=== PATIENT | male | born 1960 | race Caucasian/White ===

== ENCOUNTER 2016-12-11 09:18 | Inpatient (IN) ==
--- NOTE | 2016-12-10 21:03 | Discharge Summary ---
<PatricealtheaYari yap Abdoul - Last Filed: 12/10/16 21:01> Date of Encounter: 12/10/16 - Discharge Diagnosis (1) Left rotator cuff tear arthropathy Priority: Primary Status: Acute (2) HTN (hypertension) Priority: Secondary Status: Chronic Qualifiers: Hypertension type: essential hypertension Qualified Code(s): I10 - Essential (primary) hypertension (3) COPD (chronic obstructive pulmonary disease) Priority: Secondary Status: Chronic Qualifiers: COPD type: unspecified COPD Qualified Code(s): J44.9 - Chronic obstructive pulmonary disease, unspecified (4) Tobacco use Priority: Secondary Status: Chronic - Discharge Medications Home Medications: Ipratropium [ATROVENT Inhaler] 2 puff IH Q6HR 07/06/15 [History] Metoprolol [Lopressor] 25 mg PO BID 07/06/15 [History] OxyCODONE Immed Rel [Roxicodone 5 MG] 5 - 10 mg PO Q6HR PRN #40 tablet 12/10/16 [Rx] Albuterol Sulfate [Albuterol Inhaler] 2 puff IH Q4H PRN 12/11/16 [History] Fenofibric Acid (Choline) [Trilipix] 135 mg PO DAILY 12/11/16 [History] Fluticasone/Salmeterol [Advair 250-50 Diskus] 1 each IH BID 12/11/16 [History] Lisinopril/Hydrochlorothiazide [Zestoretic 20-12.5 mg Tablet] 1 each PO DAILY [History] Multivitamin [Multi-Day Vitamins] 1 each PO BID 12/11/16 [History] Allergies/Adverse Reactions: Allergies [place] Allergy (Verified 07/06/15 20:01) [place] Primary care physician: Robbi Whitman - Patient Status Disposition: Home, Self-Care Condition: Good - Discharge Instructions Follow Up With: Robbi Martinez, [facility] [Primary Care Provider] - - Hospital Course Hospital course: Mr. Carballo is a 56 year old male - Time Spent with Patient Total time spent providing and/or coordinating discharge services: <Nathan Hayden - Last Filed: 12/11/16 14:27> Date of Encounter: 12/11/16 Time of Encounter: 14:26 - Discharge Diagnosis (1) Left rotator cuff tear arthropathy Priority: Primary Status: Acute (2) COPD (chronic obstructive pulmonary disease) Priority: Secondary Status: Chronic Qualifiers: COPD type: unspecified COPD Qualified Code(s): J44.9 - Chronic obstructive pulmonary disease, unspecified (3) HTN (hypertension) Priority: Secondary Status: Chronic Qualifiers: Hypertension type: essential hypertension Qualified Code(s): I10 - Essential (primary) hypertension (4) Tobacco use Priority: Secondary Status: Chronic Primary care physician: Robbi Whitman - Patient Status Functional capacity at discharge: independent ambulation Overall status at discharge: patient is progressing back to baseline - Hospital Course Hospital course: Mr. Carballo is a 56 year old male The patient had an uneventful postoperative course. They received antibiotics and physical therapy and were discharged in stable condition. There will follow -up in the office in 2 weeks. - Time Spent with Patient Total time spent providing and/or coordinating discharge services:
--- NOTE | 2016-12-11 09:45 | History & Physical Report ---
Date of Encounter: 12/11/16 Time of Encounter: 09:45 24 Hour HP Update - Instructions Instructions: If the History and Physical is less than 30 days old and was completed prior to A.M. admission and or procedure and has NOT been updated on calendar day of procedure please complete this update prior to performing procedure. - Update Patient reports changes in Medical Condition: No Changes in assessment/condition: No Changes in Medication: No Preop tests/diagnostics Reviewed: Yes Surgery Remains Indicated: Yes Consent for Planned Operative Procedure(s) Verified: Yes - Pre-Operative Checklist Preoperative Checklist Indicated: No Prophylactic Antibiotic Ordered: Yes Is VTE Prophylaxis Indicated?: Yes
[2016-12-11] MEDS ORDERED: Albuterol 2.5 MG/3 ML NEBULIZER IH ONE (09:48)
[2016-12-11] MEDS ORDERED: CeFAZolin Pre 2,000 MG/100 ML 2,000 MG/100 ML BAG IVPB ONE (09:48)
[2016-12-11] MEDS ORDERED: Ringers Solution, Lactated 1,000 ML IVC SCH ×2 (10:00→13:44)
[2016-12-11] MEDS ORDERED: Famotidine 20 MG/2 ML VIAL IVP ONE (10:37)
--- NOTE | 2016-12-11 10:40 | Anesthesia Evaluation PreOp ---
Date of Encounter: 12/11/16 Time of Encounter: 10:40 - Past History Planned Operation: Left Total Shoulder Replacement Cardiac History: HTN, Hyperlipidemia Pulmonary History: Smoker, COPD [employer] History: Denies Any Significant HX Other Medical History: Denies Any Significant HX Anesthesia History: No Prior Anesthetic Complications Alcohol Use: none, occasionally Drug use: none Medications and Allergies Ipratropium [ATROVENT Inhaler] 2 puff IH Q6HR 07/06/15 [History] Metoprolol [Lopressor] 25 mg PO BID 07/06/15 [History] OxyCODONE Immed Rel [Roxicodone 5 MG] 5 - 10 mg PO Q6HR PRN #40 tablet 12/10/16 [Rx] Albuterol Sulfate [Albuterol Inhaler] 2 puff IH Q4H PRN 12/11/16 [History] Fenofibric Acid (Choline) [Trilipix] 135 mg PO DAILY 12/11/16 [History] Fluticasone/Salmeterol [Advair 250-50 Diskus] 1 each IH BID 12/11/16 [History] Lisinopril/Hydrochlorothiazide [Zestoretic 20-12.5 mg Tablet] 1 each PO DAILY [History] Multivitamin [Multi-Day Vitamins] 1 each PO BID 12/11/16 [History] Allergies [place] Allergy (Verified 07/06/15 20:01) [place] - Meds/Allergy Pre-op Review Medications Reviewed: Yes Allergies Reviewed: Yes Beta Blockers on Current Med List: Yes (Took Metoprolol last night 1999) Anesthesia Results - Labs Laboratory Tests 11/27/16 11/27/16 12:35 12:35 Hgb 18.7 H Hct 56.6 H Plt Count 264 Sodium 140 Potassium 4.5 BUN 12 Creatinine 1.04 - Imaging EKG: report reviewed (SR) Anesthesia Exam O2 Sat Height 1.71 m Height 1.71 m Height 1.71 m Weight 91.172 kg Weight 91.172 kg Weight 91.172 kg O2 Sat by Pulse Oximetry 95 O2 Sat by Pulse Oximetry 95 O2 Sat by Pulse Oximetry 95 Vital Signs Temp Pulse Resp BP Pulse Ox 98.8 F 91 18 123/89 95 12/11/16 09:46 12/11/16 09:46 12/11/16 09:46 12/11/16 09:46 12/11/16 09:46 Height: 5'8 Weight: 200 lbs NPO (# of Hours): MN Pain Scale: 0 - HEENT Pupil (Motor): Pupils equal, EOMI Mallampati: II Teeth: Normal Oral Opening: Greater than 3 - [employer] LOC: Oriented [employer] Motor: Normal RUE, Normal LUE, Normal RLE, Normal LLE, Normal Face [employer] Sensory: Normal: RUE, LUE, RLE, LLE, Face - Cardiac Rhythm: Regular Murmur: None JVD: No Carotid Bruit: No - Pulmonary Breath Sounds: bilateral Clear Respiratory Effort: Symmetrical Anesthesia Assess/Plan ASA Score: 3 (HTN COPD) Modified [place] Scale for Level of Consciousness: Cooperative, oriented, and tranquil Anesthetic Plan: General, Regional Monitoring Plan: Standard Monitors Recovery Plan: PACU (Discussed GA and RA, agrees to proceed)
[2016-12-11] MEDS ORDERED: Lidocaine -MPF 2% 2 ML VIAL ONE ×2 (10:48→11:10)
[2016-12-11] MEDS ORDERED: *HR* FentaNYL (PF) 100 MCG/2 ML VIAL ONE ×2 (10:48→12:01)
[2016-12-11] MEDS ORDERED: *HR* Propofol 200 MG/20 ML VIAL IVP ONE (10:48)
[2016-12-11] MEDS ORDERED: *HR* Midazolam HCl 2 MG/2 ML VIAL ONE (10:48)
[2016-12-11] MEDS ORDERED: *HR* Succinylcholine 200 MG/10 ML VIAL IVP ONE (11:10)
[2016-12-11 11:21] LABS: Prothrombin Time 11.3 Seconds (9.4-12.1)
[2016-12-11 11:23] LABS: Activated Partial Thrombo Time 30.1 Seconds (26.0-36.0)
[2016-12-11] MEDS ORDERED: Tetracaine/PF 20 MG/2 ML AMPUL SPINA ONE (11:29)
[2016-12-11] MEDS ORDERED: Dexamethasone 4 MG/ML VIAL ONE (12:14)
[2016-12-11] MEDS ORDERED: Ondansetron 4 MG/2 ML VIAL ONE (12:14)
--- NOTE | 2016-12-11 12:14 | Anesthesia Procedures ---
Date of Encounter: 12/11/16 Time of Encounter: 11:00 Procedures: Anesthesia - Nerve Block Procedure Date: 12/11/16 Time: 11:50 Pre-op Diagnosis: Left Shoulder O Surgical Procedure: Arthropathy Checklist: Correct Patient Identifier Correct side: Left Blood Thinner: No Monitor Applied: EKG, BP, Pulse Oximetry Supplemental Oxygen via Nasal Cannula (L/min): 2 Sedation: Versed (mg): 2 Sedation: Fentanyl (mcg): 100 Indication: Post Op Analgesia Pre-op Neuro Deficits: No Block Type: Supraclavicular Catheter placed: No Depth at skin (cm): 3 Sterile Technique: Yes Ultrasound used: Yes Anatomy identified: Yes Visual spread of Local: Yes Neuro Stimulation: No Blood on Needle Aspiration: No Smooth Injection of Local: Yes Pain with Injection of Local: No Prep: Chlorhexadine Needle: 22 x 50 mm Stimuplex Local: Tetracaine (20), Other (Bupivacaine 0.5%) Volume (cc): 30 Number of Attempts: 1 Complications: None/effective block Vitals: Vital Signs/O2 Sat/Glucose, Most Current Temp Pulse Resp BP Pulse Ox 12/11/16 11:49 88 16 131/91 94 L 12/11/16 11:31 91 16 119/81 97 12/11/16 10:00 98.8 F 91 18 123/89 95 12/11/16 09:46 98.8 F 91 18 123/89 95
[2016-12-11] MEDS ORDERED: *HR* HYDROmorphone (PF) 1 MG/ML SYRINGE IVP PRN ×2 (12:24→13:44)
[2016-12-11] MEDS ORDERED: *HR* Promethazine 25 MG/ML VIAL IVP PRN (12:24)
[2016-12-11] MEDS ORDERED: *HR* Labetalol 100 MG/20 ML MDV IVP PRN (12:24)
--- NOTE | 2016-12-11 12:47 | Orthopedic Operative Note ---
Date of procedure: 12/11/16 Pre-op diagnosis: Shoulder cuff tear arthropathy left Post-op diagnosis: same Procedure: Procedure: Left Total Shoulder Replacment Reverse, Estimated blood loss: 100 cc Hardware:Arthrex large glenoid baseplate, 2 4.5 screws. 1 6.5 screw, 42 lateral glenosphere, 7 humeral stem, poly insert 3 and 6 metal Exam Under anesthesia: Full motion and no instability Procedural Notes: Grade 3 arthritic changes humeral head glenoid socket irreparable tear subscap supraspinatus infraspinatus. Operative procedure: The patient was brought to the operating room and placed on the operating room table. After general anesthesia was administered the operative shoulder was examined. Findings were noted. The patient was placed in the modified beachchair position. All pressure points were padded appropriately. And the head was stabilized in the neutral position. The operative extremity was prepped and draped in the sterile surgical fashion. The patient received IV antibiotics prior to skin incision. A standard deltopectoral approach was made to the operative shoulder. Incision was made to the skin and subcutaneous tissue,hemo stasis was obtained with Bovie cautery. Using careful blunt dissection the cephalic vein was identified and mobilized medially. The deltopectoral interval was developed and the clavipectoral fascia was incised. Patient noted to have an irreparable tear of the subscapularis. The humerus was dislocated patient noted to have irreparable tear supraspinatus tendon and infraspinatus and grade 3 arthritic changes humeral head glenoid socket, and the humeral cut was made along the anatomic neck. Anterior and posterior Bankart retractors were placed to expose the glenoid. The glenoid guide was seated and the centering hole was made. It was reamed with the appropriate medium reamer. The medium baseplate was seated and secured with (2) 4.5 screws and one 6.5 screw. The baseplate was irrigated and dried and the lateral Glenosphere was seated and secured with the Mauricio taper. The Mauricio taper was tested and found to be secure the humerus was redislocated and prepared with the diaphyseal reamers, followed by a broaching process up to the appropriate size 7 in the patient's anatomic version. The metaphyseal reamer was then utilized. Trial reduction found the shoulder to be relocatable. Trial components were removed and drill holes were placed in the lesser tuberosity. They were filled with #5 FiberWire suture incorporating the biceps tendon. These sutures were used for a subscap repair and a biceps tenodesis. The appropriate 7 stem was impacted in place in the patient's anatomic version. Trial reduction found the shoulder to be relocatable and stable with the appropriate 6 metal and 3 Susana Trial component was removed and the real 6 metal and 3 Susana was seated and secured the shoulder was reduced. The shoulder had excellent motion and excellent stability and no evidence of dislocation. The deep tissue was irrigated with pulse irrigation. The deltopectoral interval was closed with a running #1 PDS suture, subcutaneous tissue was irrigated and closed with 0 PDS suture, the skin was closed with Dermabond. The patient was placed in a sterile dressing, abduction brace and extubated. The patient was then transferred to the recovery room in stable condition. Anesthesia: KENIA Surgeon: Nathan Hayden Condition: stable Disposition: PACU
[2016-12-11 13:38] LABS: Hematocrit 47.5 % (37.5-50.1); Hemoglobin 15.9 g/dL (12.9-16.9)
[2016-12-11] MEDS ORDERED: Sennosides 8.6 MG TABLET PO PRN (13:44)
[2016-12-11] MEDS ORDERED: *HR* OxyCODONE Immed Rel 5 MG TABLET PO PRN ×2 (13:44)
[2016-12-11] MEDS ORDERED: Ondansetron 4 MG/2 ML VIAL IVP PRN (13:44)
[2016-12-11] MEDS ORDERED: Acetaminophen 325 MG TABLET PO PRN (13:44)
[2016-12-11] MEDS ORDERED: Naloxone 0.4 MG/ML INJ IVP PRN (13:44)
[2016-12-11] MEDS ORDERED: Albuterol Neb 1.25 MG/3 ML VIAL IH ONE (13:44)
[2016-12-11] MEDS ORDERED: MOM Conc 10 ML UD.LIQ PO PRN (13:44)
[2016-12-11] MEDS ORDERED: Temazepam 15 MG CAPSULE PO PRN (13:44)
--- NOTE | 2016-12-11 13:49 | Anesthesia Evaluation Post Op ---
Date of Encounter: 12/11/16 Time of Encounter: 13:48 - Vital Signs Vital Signs: Vital Signs/O2 Sat, Most Current Temp Pulse Resp BP Pulse Ox 97.3 F L 80 16 120/84 98 12/11/16 13:45 12/11/16 13:45 12/11/16 13:45 12/11/16 13:45 12/11/16 13:45 - Lungs Lungs: Clear Ascult./Percussion - Airway Airway: Non-obstructed - Cardiovascular Regular Rate - Mental Status Mental Status: Alert & Oriented, Answers Appropriately - Pain Pain Scale: 0 Pain Scale used: Numeric (1 - 10) - Nausea Vomiting Nausea Vomiting: Not Present - Hydration Hydration: NPO, Has not voided - Discharge PostOp Status: Transfer Patient to floor
[2016-12-11] MEDS ORDERED: *HR* Enoxaparin 30 MG/0.3 ML SYRINGE SQ ONE (14:16)
[2016-12-11] MEDS: Ipratropium 1 PUFF INHALER IH SCH ×2 (15:45)
[2016-12-11] MEDS ORDERED: ceFAZolin 2,000 MG in D5% in Water 100 ML IVPB ONE (17:00)
[2016-12-11 17:08] VITALS: BP 119/78
[2016-12-11] MEDS ORDERED: *HR* Enoxaparin 30 MG/0.3 ML SYRINGE SQ SCH ×2 (18:00)
[2016-12-11] MEDS ORDERED: ceFAZolin 2,000 MG in D5% in Water 100 ML IVPB SCH (20:00)
[2016-12-11] MEDS ORDERED: Multivit/Ca/Min/Fe/FA 1 TAB TABLET PO SCH (21:00)
[2016-12-11] MEDS ORDERED: Budesonide/Formoterol 160/4.5 MDI IH SCH (22:00)
[2016-12-12] MEDS ORDERED: Lisinopril-HCTZ 20-12.5mg TABLET PO SCH (09:00)
== END 2016-12-11 18:30 | disposition home or self-care (01) | DRG 315 ==
LOC: SAMDAY 09:18 → 3NENU 13:44
PROVIDERS: ADMIT Orthopaedic Surgery; ATTEND Orthopaedic Surgery